=== PATIENT | male | born 1995 | race Two or more races ===

== ENCOUNTER 2025-06-22 12:26 | Emergency (ER) | payer OTHER ==
[~2025-06-22] VITALS: Ht 188 cm; Wt 90.9 kg
[2025-06-22 12:29] VITALS: TEMP 97.8
--- NOTE | 2025-06-22 13:05 | Physician Documentation ---
History of Present Illness ~ Chief Complaint: Chemical Burn Stated Complaint: CHEMICAL IN EYES Time Seen by MD: 12:35 Mode of Arrival: POV HPI 29-year-old male presenting for left eye irritation after he accidentally got some bleach into his left eye. 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 He has been having some mild burning and irritation left eye ever since. This occurred about 2-3 hours ago. He states that his vision is fine but that his eye has been watering and is uncomfortable. The patient wears contact lenses and took both of his contact lenses out immediately. He then irrigated his eye for about 20 minutes. The eye has improved however he states that it is still bothersome. Medication Reconciliation Allergies: Coded Allergies: No Known Allergies (Unverified , 06/22/25) Past Medical History Past Medical History: No Pertinent History Review of Systems All Other Systems at this time: Reviewed and Negative Physical Exam Vital Signs: Temperature: 97.8, Source: Temporal, Heart Rate: 85, Respiratory Rate: 18, BP: 138/85, Pulse Oximetry: 100, Weight: 90.910 Oxygen Flow Rate: 0 Physical Exam I have reviewed the triage vitals. CONST: Well developed and well nourished. In no acute distress HENT: Head Atraumatic EYES: Pupils are equal, round and reactive to light. Left eye with injected conjunctivae and watery drainage. Wood's lamp exam indicates no abrasions, no foreign bodies NECK: Normal range of motion. Supple. CARDIO: Normal rate and regular rhythm. No murmurs, rubs, or gallops. S1, S2. PULM/CHEST: No respiratory distress. Lungs clear to auscultation. No wheeze ABD: Soft and nontender. Nondistended. Bowel sounds normal. No guarding. : Exam deferred MSK: No edema. No deformity. NEURO: Alert and oriented to person, place and time. Moving all extremities SKIN: Warm and dry. PSYCH: Normal mood and affect. Good eye contact. Progress Results/Orders Results/Orders Orders - ELIZABETH CABALLERO MD Eye Procedure (06/22/25 14:31) Completed Orders - ELIZABETH CABALLERO MD Tetracaine 0.5% Ophth Drops (Tetravisc 0 (06/22/25 13:00) Medical Decision Making Additional Comment 29 y/o M presenting with chemical (bleach) injury to L eye. pH is normal. Eye irrigated with normal saline. Patient eloped prior to final disposition. Departure Disposition: 07 LEFT AWOL/ELOPED Impression: Primary Impression: Chemical insult, eye Condition: Stable Referrals: NO PRIMARY CARE PROVIDER (PCP) Signature Scribe Signature: 1 Attestation: 1 ELIZABETH CABALLERO MD Jun 22, 2025 13:05
[2025-06-22] MEDS: TETRACAINE 0.5% 4 ML OPHTHALMIC DROPS LEFTEYE ONE (13:33)
[2025-06-22 15:39] VITALS: BP 129/85; PULSE 64; RESP 18; O2SAT 100
== END 2025-06-22 16:07 | disposition left against medical advice (07) ==
LOC: ER 12:27
DX: H57.89 Other specified disorders of eye and adnexa (principal)
CPT/HCPCS: 99283